=== PATIENT | female | born 2000 | race African-American/Black ===

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

== ENCOUNTER 2021-03-26 14:16 | Emergency (ER) | payer OTHER ==
[2021-03-26 14:45] VITALS: BP 124/86; TEMP 98.2; BMI 22.3
[2021-03-26] MEDS ORDERED: ACETAMINOPHEN 325 MG TABLET (FP) PO ONE (15:26)
[2021-03-26] MEDS ORDERED: ACETAMINOPHEN 325 MG TABLET (FP) ONE (15:36)
[2021-03-26 17:45] VITALS: PULSE 61
== END 2021-03-26 17:45 | disposition home or self-care (01) ==
LOC: JER 14:16
DX: M54.2 Cervicalgia (principal); V49.40XA Driver injured in collision with unspecified motor vehicles in traffic accident, initial encounter
CPT/HCPCS: 72125-TC; 99284-25

== ENCOUNTER 2021-05-31 01:35 | Emergency (ER) | payer OTHER ==
[2021-05-31 01:43] VITALS: BP 106/70; PULSE 78; TEMP 98.2; BMI 22.3
[2021-05-31] MEDS ORDERED: LACTULOSE 20 GM/30 ML UDC (FOR ORAL USE ONLY) PO ONE (01:58)
[2021-05-31] MEDS ORDERED: LACTULOSE 20 GM/30 ML UDC (FOR ORAL USE ONLY) ONE (02:27)
[2021-05-31] MEDS ORDERED: GLYCERIN 1 RECTAL SUPPOSITORY, PEDIATRIC RC ONE (02:28)
[2021-05-31] MEDS ORDERED: GLYCERIN 1 RECTAL SUPPOSITORY, ADULT PR ONE (02:37)
== END 2021-05-31 03:11 | disposition home or self-care (01) ==
LOC: JER 01:35
DX: K59.00 Constipation, unspecified (principal)
CPT/HCPCS: 99283-25

== ENCOUNTER 2022-05-30 21:27 | Emergency (ER) | payer OTHER ==
[2022-05-30 21:35] VITALS: RESP 18; BMI 21.7
[2022-05-30] MEDS ORDERED: SODIUM CHLORIDE 1,000 ML IV STA (23:06)
[2022-05-30] MEDS ORDERED: ONDANSETRON 4 MG/2 ML VIAL IVPUSH ONE (23:06)
[2022-05-30] MEDS ORDERED: ONDANSETRON 4 MG/2 ML VIAL ONE (23:10)
[2022-05-30 23:41] LABS: URINE APPEARANCE CLEAR; URINE BILIRUBIN NEGATIVE (NEGATIVE); URINE COLOR YELLOW; URINE GLUCOSE (UA) NEGATIVE (NEGATIVE); URINE KETONE NEGATIVE (NEGATIVE); URINE LEUK ESTERASE NEGATIVE (NEGATIVE); URINE NITRITE NEGATIVE (NEGATIVE); URINE PROTEIN TRACE (NEGATIVE); URINE UROBILINOGEN 0.2 mg/dL (0.2-1.0)
[2022-05-30 23:44] LABS: BASO % 0.2 % (0-2.0); EOS % 0.6 % (0-4.5); HCG,QUALITATIVE URINE Negative; HEMATOCRIT 43.2 % (32.4-45.2); HEMOGLOBIN 13.9 GM/dL (10.7-15.3); LYMPH % 5.3 % (8-40); MCH 25.9 pg (25.7-33.7); MCHC 32.1 g/dl (32.0-36.0); MEAN CELL VOLUME 80.6 fl (80-96); MEAN PLT VOLUME 7.8 fl (7.5-11.1); NEUT % 89.9 % (42.8-82.8); PLATELET COUNT 323 10^3/uL (134-434); RBC 5.37 M/mm3 (3.60-5.2); RDW 14.5 % (11.6-15.6); WHITE BLOOD COUNT 10.8 K/mm3 (4.0-10.0)
[2022-05-31 00:02] LABS: CALCIUM 9.2 mg/dL (8.5-10.1)
[2022-05-31 00:03] LABS: ALBUMIN 4.2 g/dl (3.4-5.0); BLOOD UREA NITROGEN 11.5 mg/dL (7-18)
[2022-05-31 00:06] LABS: CREATININE 0.9 mg/dL (0.55-1.3)
[2022-05-31 00:07] LABS: BILIRUBIN,TOTAL 0.6 mg/dL (0.2-1)
[2022-05-31 00:08] LABS: TOT PROT 7.5 g/dl (6.4-8.2)
[2022-05-31 00:30] VITALS: BP 119/46; PULSE 66; TEMP 98.7
== END 2022-05-31 02:14 | disposition home or self-care (01) ==
LOC: JER 21:27
PROC: 3E033GC Introduction of Other Therapeutic Substance into Peripheral Vein, Percutaneous Approach (ICD-10-PCS; principal; 2022-05-30)
DX: K52.9 Noninfective gastroenteritis and colitis, unspecified (principal)
CPT/HCPCS: 0241U-QW; 36415; 80053; 81003; 83690; 84703; 85025; 87086; 99284-25